=== PATIENT | male | born 1980 | race Two or more races ===

== ENCOUNTER 2020-07-26 08:44 | Outpatient (CLI) | payer BC | END 2020-07-26 23:59 | disposition home or self-care (01) | LOC: MSC 08:44 | PROVIDERS: ATTEND Internal Medicine | DX: R53.1 Weakness (principal); K21.9 Gastro-esophageal reflux disease without esophagitis; R63.4 Abnormal weight loss; L65.9 Nonscarring hair loss, unspecified ==